=== PATIENT | female | born 1955 | race Caucasian/White ===

== ENCOUNTER 2024-07-17 16:47 | Outpatient (CLI) | payer SELFPAY ==
--- NOTE | 2024-07-17 16:55 | XRR_ITS ---
PROCEDURE INFORMATION: Exam: XR Left Hip Exam date and time: 07/17/2024 5:00 PM Age: 68 years old Clinical indication: Hip pain; Patient HX: Pain in the left hip for years. PT states she has a calcium build up and bone spurs on the hip. ; Additional info: Pain in hip TECHNIQUE: Imaging protocol: Radiologic exam of the left hip. Views: 2 or 3 views hip with pelvis when performed. COMPARISON: No relevant prior studies available. FINDINGS: Bones/joints: Diffuse degenerative change of the visualized osseous structures. Soft tissues: Unremarkable. XR/XR hip LT 2-3V wo/w pel* [id number] IMPRESSION: No acute findings.
== END 2024-07-17 16:48 | disposition home or self-care (01) ==
LOC: RAD 16:51
PROVIDERS: PCP Nurse Practitioner Family; Visit Provider Chiropractor
DX: M16.12 Unilateral primary osteoarthritis, left hip (principal)
CPT/HCPCS: 73502